=== PATIENT | female | born 1975 | race Caucasian/White ===

== ENCOUNTER 2018-04-09 17:05 | Emergency (ER) | payer BC ==
[~2018-04-09] VITALS: Ht 157.5 cm; Wt 71.0 kg
[2018-04-09] MEDS ORDERED: dexamethasone sod phosphate 10mg/ml inj IV STA (20:38)
[2018-04-09] MEDS ORDERED: normal saline 1000ML IV soln IVB ONE (20:40)
[2018-04-09] MEDS ORDERED: ondansetron/PF 4mg/2ml inj IV ONE (20:40)
[2018-04-09] MEDS ORDERED: ipratropium/albuterol 3ml nebule NEB ONE (20:40)
[2018-04-09 20:54] LABS: BASOPHILS % (AUTO) 0.3 % (0-1); EOSINOPHILS # (AUTO) 0.3 X10'3 (0-0.9); EOSINOPHILS % (AUTO) 1.9 % (0-6); HEMATOCRIT 42.2 % (35.0-45.0); HEMOGLOBIN 14.2 g/dl (12.0-16.0); LYMPHOCYTES % (AUTO) 22.5 % (21-51); MEAN CORPUSCULAR HEMOGLOBIN 30.6 PG (27.0-31.0); MEAN CORPUSCULAR HGB CONC 33.7 % (33.0-36.5); MEAN CORPUSCULAR VOLUME 90.8 FL (78-98); MEAN PLATELET VOLUME 7.9 FL (7.4-10.4); MONOCYTES # (AUTO) 0.7 X10'3 (0-0.9); MONOCYTES % (AUTO) 4.9 % (2-12); NEUTROPHILS # (AUTO) 9.4 X10'3 (1.8-7.7); NEUTROPHILS % (AUTO) 70.4 % (42-75); PLATELET COUNT 449 X10'3 (140-440); RED BLOOD COUNT 4.65 X10'6 (4.20-5.60); RED CELL DISTRIBUTION WIDTH 14.4 % (11.5-14.5); WHITE BLOOD COUNT 13.3 X10'3 (4.5-11.0)
[2018-04-09 21:13] LABS: ALANINE AMINOTRANSFERASE 27 U/L (12-78); ALBUMIN/GLOBULIN RATIO 1.2 (1.1-1.5); ALKALINE PHOSPHATASE 98 IU/L (46-116); ANION GAP 7 (8-16); ASPARTATE AMINO TRANSFERASE 15 U/L (10-37); BILIRUBIN,TOTAL 0.2 MG/DL (0.1-1.0); BLOOD UREA NITROGEN 10 MG/DL (7-18); BUN/CREATININE RATIO 13.3 (6.6-38.0); CALCIUM 9.2 MG/DL (8.5-10.1); CHLORIDE 103 MMOL/L (99-107); CREATININE 0.75 MG/DL (0.40-0.90); GLUCOSE 83 MG/DL (70-104); POTASSIUM 3.4 MMOL/L (3.5-5.1); SODIUM 139 MMOL/L (135-145); TOTAL CARBON DIOXIDE 28.9 MMOL/L (24-32); TOTAL PROTEIN 7.4 G/DL (6.4-8.2); eGFR 85 ML/MIN
[2018-04-09] MEDS ORDERED: ALB0.5UD IH (21:22)
[2018-04-09] MEDS ORDERED: PRED5TAB PO (21:22)
[2018-04-09] MEDS ORDERED: ALBU8HFA PO (21:22)
[2018-04-09 21:55] VITALS: BP 122/77
== END 2018-04-09 21:58 | disposition home or self-care (01) ==
LOC: ER 17:06
DX: E11.649 Type 2 diabetes mellitus with hypoglycemia without coma (principal); J45.901 Unspecified asthma with (acute) exacerbation; Z91.040 Latex allergy status; Z91.048 Other nonmedicinal substance allergy status
CPT/HCPCS: 36415; 80053; 82948; 85025; 94640; 94760; 96361; 96374; 96375; 99284; J1100; J2405; J7030